=== PATIENT | male | born 1990 | race Caucasian/White ===

== ENCOUNTER 2020-04-19 15:38 | Emergency (ER) | payer SELFPAY ==
[~2020-04-19] VITALS: Ht 177.8 cm; Wt 72.6 kg
[2020-04-19 15:54] VITALS: BP 135/81
--- NOTE | 2020-04-19 17:06 | NUR ---
Patient discharged to home in stable condition. Written and verbal after care instructions given. Patient verbalizes understanding of instruction.
== END 2020-04-19 17:06 | disposition home or self-care (01) ==
LOC: ER 15:40
DX: M25.511 Pain in right shoulder (principal); R07.81 Pleurodynia; Z88.8 Allergy status to other drugs, medicaments and biological substances; Z88.6 Allergy status to analgesic agent
CPT/HCPCS: 71100-TC; 73030-TC